=== PATIENT | male | born 1955 | race Caucasian/White ===

== ENCOUNTER 2018-05-17 06:42 | Outpatient (CLI) | payer OTHER ==
[2018-05-17 07:18] LABS: ALT (SGPT) 33 U/L (8-55); AST (SGOT) 22 U/L (5-34); Albumin 3.9 g/dL (3.4-4.8); Alkaline Phosphatase 53 U/L (40-150); Anion Gap 11 mmol/L (10-20); BUN (Urea Nitrogen) 24 mg/dL (8.4-25.7); Bilirubin, Total 0.7 mg/dL (0.2-1.2); Calc. Creatinine Clearance 0 mL/min (70-130); Carbon Dioxide 29 mmol/L (23-31); Cardiac Risk 3.2 (Less than 4.5); Chloride 105 mmol/L (98-107); Cholesterol 150 mg/dl (< 200 Desired); Estimated GFR-MDRD 66; Globulin 2.6 g/dL (2.4-3.5); Glucose 102 mg/dL (80-115); HDL Cholesterol 47 mg/dL (>60 Neg Risk); LDL Cholesterol, Calculated 88 mg/dL; Potassium 4.3 mmol/L (3.5-5.1); Protein, Total 6.5 g/dL (5.8-8.1); Sodium 141 mmol/L (136-145); Triglycerides 73 mg/dL (Less than 150)
[2018-05-17 07:34] LABS: PSA-Asymptomatic (SCREENING) 0.44 ng/mL (0-4.0); Thyroid Stimulating Hormone 2.3336 uIU/mL (0.35-4.94)
== END 2018-05-17 06:43 ==
LOC: SCSLAB 06:42
PROVIDERS: ATTEND Family Medicine
DX: E78.2 Mixed hyperlipidemia (principal); N52.9 Male erectile dysfunction, unspecified; E03.9 Hypothyroidism, unspecified
CPT/HCPCS: 36415; 80053; 80061; 84443; G0103